=== PATIENT | female | born 1970 | race Two or more races ===

== ENCOUNTER 2019-09-25 21:35 | Inpatient (IN) | payer OTHER ==
[~2019-09-25] VITALS: Ht 142.2 cm; Wt 86.2 kg
[2019-09-27] MEDS ORDERED: CIPRO500 MG PO (16:58)
[2019-09-27] MEDS ORDERED: FLAGYL500MG PO (16:59)
== END 2019-09-27 17:18 | disposition home or self-care (01) | DRG 446 ==
LOC: ER 21:35 → SEC-K 09-26 18:18 → SURG 09-26 18:18 → SURH 09-26 23:41 → SURG 09-27 00:11
PROVIDERS: ADMIT Colon & Rectal Surgery
PROC: BW40ZZZ Ultrasonography of Abdomen (ICD-10-PCS; principal; 2019-09-26)
DX: K81.0 Acute cholecystitis (principal)